=== PATIENT | female | born 1985 | race Caucasian/White ===

== ENCOUNTER 2017-01-14 09:35 | Emergency (ER) | payer OTHER ==
[~2017-01-14] VITALS: Ht 157.5 cm; Wt 58.0 kg
--- NOTE | 2017-01-14 09:49 | PD ---
HPI Chief Complaint: chest pain Time Seen by Provider: 09:49 Travel History International Travel<30 days: No Contact w/Intl Traveler<30days: No Traveled to known affect area: No History of Present Illness HPI 31-year-old female came to the emergency room with history of vague chest pain starting yesterday. It's all across her chest. She says she was up all night because of the pain. She is never had chest pain like this in the past. 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 No history of cough, shortness of breath. Family history of coronary artery disease. Her uncle had 4 stents put in. Days ago and he is in his 50s. Her mother had stent put in when she was in late 40s. Nothing makes her pain better or worse. It is just there and she is currently the pain is 7 out of 10. No history of nausea, vomiting or fever. Vital signs were stable in triage. No radiation of the pain to anywhere else besides across the chest. Patient says that she was diagnosed with low thyroid for 5 years ago by her primary care in [place]. She lost insurance and she never followed up. At that time she was told that it was low but did not require medication. She was really concerned about it and wanted her thyroid level to be checked. [facility] Past Medical History Narrative Medical List of her past medical, social and family history been reviewed from the nursing note. Family History Narrative Family History Patient's uncle, mother and grandmother have had stents put in Family Myocardial Infarction: Yes Social History Tobacco Use: Yes Allergies-Medications (Allergen,Severity, Reaction): Coded Allergies: No Known Allergies (Unverified , 01/14/17) Comments List of her allergies reviewed from the nursing note. Reported Meds & Prescriptions Reported Meds & Active Scripts Active Naprosyn (Naproxen) 500 Mg Tab 500 Mg PO BID Narrative Medication List of her home medications reviewed from the nursing note. Review of Systems Except as stated in HPI: all other systems reviewed are Neg Physical Exam Narrative GENERAL: Awake, alert, moderate distress SKIN: Warm and dry. HEAD: Atraumatic. Normocephalic. EYES: Pupils equal and round. No scleral icterus. No injection or drainage. ENT: No nasal bleeding or discharge. Mucous membranes pink and moist. NECK: Trachea midline. No JVD. CARDIOVASCULAR: Regular rate and rhythm. No murmur appreciated. RESPIRATORY: No accessory muscle use. Clear to auscultation. Breath sounds equal bilaterally. GASTROINTESTINAL: Abdomen soft, non-tender, nondistended. Hepatic and splenic margins not palpable. MUSCULOSKELETAL: No obvious deformities. No clubbing. No cyanosis. No edema. NEUROLOGICAL: Awake and alert. No obvious cranial nerve deficits. Motor grossly within normal limits. Normal speech. PSYCHIATRIC: Appropriate mood and affect; insight and judgment normal. Data Data Last Documented VS Orders Electrocardiogram (01/14/17 10:11) Basic Metabolic Panel (Bmp) (01/14/17 10:11) Ckmb (Isoenzyme) Profile (01/14/17 10:11) Complete Blood Count With Diff (01/14/17 10:11) D-Dimer (01/14/17 10:11) Magnesium (Mg) (01/14/17 10:11) Prothrombin Time / Inr (Pt) (01/14/17 10:11) Act Partial Throm Time (Ptt) (01/14/17 10:11) Troponin I (01/14/17 10:11) Chest, Single Ap (01/14/17 10:11) Ecg Monitoring (01/14/17 10:11) Bilateral Bp Monitoring (01/14/17 10:11) Iv Access Insert/Monitor (01/14/17 10:11) Oximetry (01/14/17 10:11) Oxygen Administration (01/14/17 10:11) Sodium Chloride 0.9% Flush (Ns Flush) (01/14/17 10:15) Thyroid Stimulating Hormone (01/14/17 10:11) Ketorolac Inj (Toradol Inj) (01/14/17 10:45) Labs MDM Medical Decision Making Medical Screen Exam Complete: Yes Emergency Medical Condition: Yes Medical Record Reviewed: Yes Interpretation(s) Twelve-lead EKG was reviewed by me. Normal sinus rhythm, normal axis, nonspecific ST-T wave changes. Heart rate of 84 bpm. Differential Diagnosis ACS, non-STEMI, PE, nonspecific chest pain, chest wall pain Narrative Course 11:25 AM blood test results were back and within normal limit including her d- dimer. Patient is young and otherwise healthy. The pain has been continuous for more than 24 hours now. I'm comfortable with the workup so far and I'm comfortable discharging her home. It's a work note. 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 She is going home with a prescription of Naprosyn. I spoke with her for more than 5 minutes discussing the bad effects of smoking especially with her strong family history. I have strongly recommended smoking cessation for her. Her TSH was within normal limits. Procedures EKG Prior to Arrival: Yes Diagnosis Primary Impression: Nonspecific chest pain Additional Impression: Needs smoking cessation education Referrals: Primary Care Physician 2 days Departure Forms: Tests/Procedures, Work Release Enter return to work date: Jan 17, 2017 Additional Instructions: Please return to the ER if the condition worsens or any other new concerns. Please try to find a primary care for yourselves for future follow-ups. Take Motrin/ibuprofen/Advil/Tylenol for your pain. Med/Other Pt SpecificInfo: No Change to Meds Scripts Naproxen (Naprosyn)500 Mg [id number] Mg PO BID #20 TAB Ref 0 Prov:Cyndi Marcelo MD 01/14/17 Disposition: DISCHARGE HOME Condition: Stable Cyndi Marcelo MD Jan 14, 2017 09:49 Eosinophils (%) (Auto) 0.4 % Basophils (%) (Auto) 0.9 % Neutrophils # (Auto) 3.8 TH/MM3 Lymphocytes # (Auto) 1.8 TH/MM3 Monocytes # (Auto) 0.6 TH/MM3 Eosinophils # (Auto) 0.0 TH/MM3 Basophils # (Auto) 0.1 TH/MM3 CBC Comment DIFF FINAL Differential Comment Prothrombin Time 11.3 SEC Prothromb Time International 1.0 RATIO Ratio Activated Partial 29.6 SEC Thromboplast Time D-Dimer Quantitative (PE/DVT) LESS THAN 0.19 MG/L FEU Sodium Level 143 MEQ/L Potassium Level 3.8 MEQ/L Chloride Level 110 MEQ/L Carbon Dioxide Level 26.9 MEQ/L Anion Gap 6 MEQ/L Blood Urea Nitrogen 7 MG/DL Creatinine 0.80 MG/DL Estimat Glomerular Filtration 83 ML/MIN Rate Random Glucose 99 MG/DL Calcium Level 8.6 MG/DL Magnesium Level 2.3 MG/DL Total Creatine Kinase 95 U/L Troponin I LESS THAN 0.02 NG/ML Thyroid Stimulating Hormone 0.695 uIU/ML 3rd Gen [facility] Medical Decision Making Medical Screen Exam Complete: Yes Emergency Medical Condition: Yes Medical Record Reviewed: Yes Interpretation(s) Twelve-lead EKG was reviewed by me. Normal sinus rhythm, normal axis, nonspecific ST-T wave changes. Heart rate of 84 bpm. Differential Diagnosis ACS, non-STEMI, PE, nonspecific chest pain, chest wall pain Narrative Course 11:25 AM blood test results were back and within normal limit including her d- dimer. Patient is young and otherwise healthy. The pain has been continuous for more than 24 hours now. I'm comfortable with the workup so far and I'm comfortable discharging her home. It's a work note. 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 She is going home with a prescription of Naprosyn. I spoke with her for more than 5 minutes discussing the bad effects of smoking especially with her strong family history. I have strongly recommended smoking cessation for her. Her TSH was within normal limits. Procedures EKG Prior to Arrival: Yes Diagnosis Primary Impression: Nonspecific chest pain Additional Impression: Needs smoking cessation education Referrals: Primary Care Physician 2 days Departure Forms: Tests/Procedures, Work Release Enter return to work date: Jan 17, 2017 Additional Instructions: Please return to the ER if the condition worsens or any other new concerns. Please try to find a primary care for yourselves for future follow-ups. Take Motrin/ibuprofen/Advil/Tylenol for your pain. Med/Other Pt SpecificInfo: No Change to Meds Scripts Naproxen (Naprosyn)500 Mg [id number] Mg PO BID #20 TAB Ref 0 Prov:Cyndi Marcelo MD 01/14/17 Disposition: DISCHARGE HOME Condition: Stable Cyndi Marcelo MD Jan 14, 2017 09:49
[2017-01-14 10:06] VITALS: BP 140/86; PULSE 81; RESP 17; TEMP 98.5; O2SAT 98
[2017-01-14] MEDS ORDERED: SODIUM CHLORIDE 0.9% FLUSH 5 ML FLUSH IVF PRN (10:15)
[2017-01-14 10:23] VITALS: O2SAT 98
[2017-01-14 10:38] LABS: AUTOMATED NEUTROPHIL # 3.8 TH/MM3 (1.8-7.7); BASOPHIL # 0.1 TH/MM3 (0-0.2); BASOPHIL % 0.9 % (0.0-2.0); EOSINOPHIL % 0.4 % (0.0-4.0); HEMATOCRIT 38.2 % (35.0-46.0); HEMO FLAGS DIFF FINAL; LYMPHOCYTE # 1.8 TH/MM3 (1.0-4.8); MEAN CELL VOLUME 84.8 FL (80.0-100.0); MEAN CORPUSCULAR HEMOGLOBIN 28.5 PG (27.0-34.0); MEAN CORPUSCULAR HGB CONC 33.7 % (32.0-36.0); MONO % 9.7 % (0.0-8.0); PLATELET COUNT 192 TH/MM3 (150-450); RED BLOOD COUNT 4.51 MIL/MM3 (4.00-5.30); RED CELL DISTRIBUTION WIDTH 12.9 % (11.6-17.2); WHITE BLOOD COUNT 6.3 TH/MM3 (4.0-11.0)
[2017-01-14] MEDS ORDERED: KETOROLAC TROMETHAMINE 30 MG/ML (IVP) VIAL IV PUSH ONE (10:45)
[2017-01-14 10:46] LABS: CHLORIDE 110 MEQ/L (98-107); POTASSIUM 3.8 MEQ/L (3.5-5.1); SODIUM (NA) 143 MEQ/L (136-145)
[2017-01-14 10:49] LABS: ANION GAP 6 MEQ/L (5-15); BICARBONATE 26.9 MEQ/L (21.0-32.0); BLOOD UREA NITROGEN 7 MG/DL (7-18); MAGNESIUM 2.3 MG/DL (1.5-2.5)
[2017-01-14 10:51] VITALS: BP_SYST 125; BP_SYST 131; BP_DIAS 84; BP_DIAS 89
[2017-01-14 10:52] LABS: APTT (PATIENT) 29.6 SEC (24.3-30.1); GLOMERULAR FILTRATION RATE 83 ML/MIN (>89); PROTHROMBIN TIME - PATIENT 11.3 SEC (9.8-11.6)
[2017-01-14 10:58] LABS: CREATINE KINASE 95 U/L (26-192)
--- NOTE | 2017-01-14 11:09 | RADHPO ---
EXAM DATE/TIME: 01/14/2017 10:59 [facility] COMPARISON: No previous studies available for comparison. INDICATIONS : Chest pain. MEDICAL HISTORY : None. SURGICAL HISTORY : None. ENCOUNTER: Initial ACUITY: 2 days PAIN SCORE: 9/10 LOCATION: Left chest FINDINGS: A single view of the chest demonstrates the lungs to be symmetrically aerated without evidence of mas s, infiltrate or effusion. The cardiomediastinal contours are unremarkable. Osseous structures are intact. CONCLUSION: Normal examination for a patient of this age. Timoteo Kimball MD on January 14, 2017 at 11:07 Board Certified Radiologist. This report was verified electronically.
[2017-01-14] MEDS ORDERED: NAPR500 PO (11:19)
--- NOTE | 2017-01-14 21:55 | EKG ---
Date Performed: 01/14/2017 Time Performed: 09:45:14 PTAGE: 31 years EKG: Sinus rhythm Short [place] interval Borderline ECG NO PREVIOUS TRACING DOCTOR: Medhat Lopez Interpretating Date/Time 01/14/2017 21:53:58
== END 2017-01-14 11:37 | disposition home or self-care (01) ==
LOC: PHED 09:35
DX: R07.9 Chest pain, unspecified (principal); F17.210 Nicotine dependence, cigarettes, uncomplicated; Z82.49 Family history of ischemic heart disease and other diseases of the circulatory system
CPT/HCPCS: 71010; 80048; 82550; 83735; 84443; 84484; 85025; 85379; 85610; 85730; 93005; 96374; 99284; J1885